=== PATIENT | female | born 1960 ===

== ENCOUNTER 2018-05-29 10:55 | Emergency (ER) | payer OTHER ==
[2018-05-29 11:17] VITALS: RESP 18
--- NOTE | 2018-05-29 12:11 | ED PDOC ---
Arrival/HPI - General Chief Complaint: Upper Extremity Problem/Injury Time Seen by Provider: 05/29/18 10:58 Historian: Patient, Other (son in low) - History of Present Illness Narrative History of Present Illness (Text): 05/29/18 12:08 57 yr old female w/ hx of chronic shoulder pain p/w b/l shoulder pain. Pt notes that her L shoulder hurts more than her R shoulder and that she has had chronic pain there for the past 10 years. She was last seen by her PMD in the [place], who prescribed her diclofenac 5yrs ago. Pt notes that her pain has improved with the medication but that it gives her stomach upset so she came to ED [facility] for any alternative options. She denies any Chest pain or Sob. She denies any orthopena, pnd, leg swelling. No hx of blood clots, venous stasis, unilateral leg swelling, hemoptysis, recent trauma / surgery. She denies any trauma and denies any blood thinners. Shoulder pain is throbbing, L and R shoulder, without radiation. No worse w/ exertion. Feels exactly like her previous chronic pain. No other complaints. No PMD Time/Duration: Other (3d) Symptom Onset: Gradual Symptom Course: Unchanged Quality: Aching Severity Level: 2 Past Medical History - Infectious Disease Hx of Infectious Diseases: None - Reproductive Menopause: Yes - Cardiac Hx Cardiac Disorders: No - Pulmonary Hx Respiratory Disorders: No - HEENT Hx HEENT Disorder: No - Endocrine/Metabolic Hx Endocrine Disorders: No - Hematological/Oncological Hx Blood Disorders: No - Musculoskeletal/Rheumatological Hx Arthritis: Yes Hx Degenerative Joint Disease: Yes - Gastrointestinal Hx Gastrointestinal Disorders: No - Genitourinary/Gynecological Hx Genitourinary Disorders: No - Psychiatric Hx Substance Use: No - Surgical History Hx Section: Yes Hx Hysterectomy: Yes - Anesthesia Hx Anesthesia: No Family/Social History Family/Social History: No Known Family HX Smoking Status: Unknown If Ever Smoked Hx Alcohol Use: No Hx Substance Use: No Allergies/Home Meds Allergies/Adverse Reactions: Allergies No Known Allergies Allergy (Verified 05/29/18 11:17) Home Medications: Home Meds Medication Instructions Recorded Confirmed Diclofenac [Diclofenac Sodium] 75 mg PO PRN PRN 05/29/18 05/29/18 Review of Systems - Review of Systems Constitutional: Normal Eyes: Normal ENT: Normal Respiratory: Normal Cardiovascular: Normal Gastrointestinal: Normal Genitourinary Female: Normal Musculoskeletal: Arthralgias (L and R shoulder pain) Skin: Normal Neurological: Normal Endocrine: Normal Hemo/Lymphatic: Normal Psychiatric: Normal Physical Exam Vital Signs Temp Pulse Resp BP Pulse Ox 05/29/18 13:46 98.8 F 64 18 113/74 96 05/29/18 11:10 99 F 85 18 127/78 98 Temperature: Afebrile Blood Pressure: Normal Pulse: Regular Respiratory Rate: Normal Appearance: Positive for: Well-Appearing, Non-Toxic, Comfortable Pain Distress: None Mental Status: Positive for: Alert and Oriented X 3 - Systems Exam Head: Present: Atraumatic, Normocephalic Pupils: Present: PERRL Extroacular Muscles: Present: EOMI Conjunctiva: Present: Normal Mouth: Present: Moist Mucous Membranes Neck: Present: Normal Range of Motion Respiratory/Chest: Present: Clear to Auscultation, Good Air Exchange. No: Respiratory Distress, Accessory Muscle Use Cardiovascular: Present: Regular Rate and Rhythm, Normal S1, S2. No: Murmurs Abdomen: No: Tenderness, Distention, Peritoneal Signs Back: Present: Normal Inspection Upper Extremity: Present: Normal Inspection, Other (R and L AC joint tenderness , reproducible. N/V intact distally. ). No: Cyanosis, Edema Lower Extremity: Present: Normal Inspection. No: Edema Neurological: Present: GCS=15, CN II-XII Intact, Speech Normal Skin: Present: Warm, Dry, Normal Color. No: Rashes Psychiatric: Present: Alert, Oriented x 3, Normal Insight, Normal Concentration Medical Decision Making ED Course and Treatment: 05/29/18 12:12 57 yr old female w/ hx of chronic r and L shoulder pain p/w L and R shoulder pain similiar to chronic shoulder pain. Given L sided pain and elderly female will send one trop, XR and give pain meds. Elderly females have been known to present atypically w/ CP, however given x3d flair of CP if truly ACS in nature: Troponin should indicate ACS. Plan for - 1 trop - additional labs - XR - pain control EKG: Ordered, reviewed, and independently interpreted the EKG. Time Interpreted: 12:13 Rate: 73 BPM Rhythm: NSR Interpretation: No STEMI. No ST-segment elevations or depressions, no T-wave inversions, normal intervals. Comparison: No previous EKG for comparison. 05/29/2018 12:45 Chest X-ray IMPRESSION: No active disease. Dictator: Brittany Junior MD 05/29/18 14:51 Pt in NAD. Pain improved. HEART SCORE: 2 age, EKG. troponin unremarkable. Pain MSK. given f/u clear for d/c home. - Lab Interpretations Lab Results: 05/29/18 12:20 05/29/18 13:58 Lab Results 05/29/18 13:58: Sodium 143, Potassium 4.1, Chloride 103, Carbon Dioxide 26, Anion Gap 17, BUN 12, Creatinine 0.6 L, Est GFR ( Amer) > 60, Est GFR ( Non-Af Amer) > 60, Random Glucose 116 H, Calcium 9.4, Total Bilirubin 0.3, AST 15, ALT 16, Alkaline Phosphatase 61, Troponin I < 0.01, Total Protein 7.6, Albumin 3.8, Globulin 3.8, Albumin/Globulin Ratio 1.0 L 05/29/18 12:20: WBC 5.8, RBC 4.29, Hgb 11.6 L, Hct 36.6, MCV 85.3, MCH 27.0, MCHC 31.7, RDW 15.7 H, Plt Count 333, MPV 9.0, Gran % 69.1 H, Lymph % (Auto) 20.5 L, Cottle % (Auto) 8.5 H, Eos % (Auto) 1.6, Baso % (Auto) 0.3, Gran # 3.98, Lymph # (Auto) 1.2, Cottle # (Auto) 0.5, Eos # (Auto) 0.1, Baso # (Auto) 0.02 I have reviewed the lab results: Yes - RAD Interpretation Radiology Orders: 05/29/18 12:02 CHEST TWO VIEWS (PA/LAT) [RAD] Stat - Medication Orders Current Medication Orders: Discontinued Medications Acetaminophen (Tylenol 325mg Tab) 650 mg PO STAT STA Stop: 05/29/18 12:05 Last Admin: 05/29/18 12:14 Dose: 650 mg MAR Pain/Vitals Document 05/29/18 12:14 [email or web address] (Rec: 05/29/18 12:14 [email or web address] [id number]) Pain Reassessment Is This A Pain ReAssessment? Yes Sleep Is patient sleeping during reassessment? No Presence of Pain Presence of Pain Yes Cyclobenzaprine HCl (Flexeril) 5 mg PO STAT STA Stop: 05/29/18 12:05 Last Admin: 05/29/18 12:14 Dose: 5 mg Disposition/Present on Arrival - Present on Arrival Any Indicators Present on Arrival: No History of DVT/PE: No History of Uncontrolled Diabetes: No Urinary Catheter: No History of Decub. Ulcer: No History Surgical Site Infection Following: None - Disposition Have Diagnosis and Disposition been Completed?: Yes Diagnosis: Shoulder pain Disposition: HOME/ ROUTINE Disposition Time: 14:39 Patient Problems: Current Active Problems Problem Status Onset Shoulder pain Acute Condition: GOOD Discharge Instructions (ExitCare): Shoulder Pain (DC) Additional Instructions: LIZBET BAUMAN, thank you for letting us take care of you today. Your provider was Sam Conway and you were treated for shoulder and arm pain. The emergency medical care you received today was directed at your acute symptoms. If you were prescribed any medication, please fill it and take as directed. It may take several days for your symptoms to resolve. Return to the Emergency Department if your symptoms worsen, do not improve, or if you have any other problems. Please contact your doctor or call one of the physicians/clinics you have been referred to that are listed on the Patient Visit Information form that is included in your discharge packet. Bring any paperwork you were given at discharge with you along with any medications you are taking to your follow up visit. Our treatment cannot replace ongoing medical care by a primary care provider outside of the emergency department. Thank you for allowing the [facility] team to be part of your care today. If you had an X-Ray or CT scan: A Radiologist will review the ED reading if any change in treatment is needed we will contact you. If you had a blood, urine, or wound culture: It will take several days for the results, if any change in treatment is needed we will contact you. If you had an STI test: It will take 48 hours for the results. Please call after 1 week if you have not heard back. Prescriptions: Acetaminophen 325 mg PO Q8H PRN 7 Days #21 tablet PRN Reason: Pain, Moderate (4-7) Cyclobenzaprine [Flexeril] 5 mg PO QAM PRN 5 Days #5 tab PRN Reason: Pain, Moderate (4-7) Referrals: PCP,NO [Primary Care Provider] - Follow up with primary Trudy Ortiz MD [Medical Doctor] - Follow up with primary Forms: [employer] (Slovenian)
[2018-05-29 13:09] LABS: BASO # 0.02 K/mm3 (0.0-2.0); BASO % 0.3 % (0.0-3.0); EOS # 0.1 (0.0-0.7); EOS % 1.6 % (1.5-5.0); GRAN # 3.98 (1.4-6.5); GRAN % 69.1 % (50.0-68.0); HEMOGLOBIN 11.6 g/dL (12.0-16.0); LYMPH # 1.2 (1.2-3.4); LYMPH % 20.5 % (22.0-35.0); MEAN CELL VOLUME 85.3 fl (80.0-105.0); MEAN CORPUSCULAR HGB CONC 31.7 g/dl (31.0-37.0); MONO # 0.5 (0.1-0.6); MONO % 8.5 % (1.0-6.0); RBC 4.29 10^6/uL (3.5-6.1); RED CELL DISTRIBUTION WIDTH 15.7 % (11.5-14.5); WHITE BLOOD COUNT 5.8 10^3/ul (4.5-11.0)
[2018-05-29 13:47] VITALS: BP 113/74
[2018-05-29 14:15] LABS: ALBUMIN 3.8 g/dL (3.0-4.8); ALT/SGPT 16 U/L (7-56); AST/SGOT 15 U/L (14-36); BLOOD UREA NITROGEN 12 mg/dL (7-21); CALCIUM 9.4 mg/dL (8.4-10.5); GFR AFRICAN-AMERICAN > 60; GFR NON-AFRICAN AMERICAN > 60
[2018-05-29 14:26] LABS: TROPONIN I < 0.01 ng/mL
[2018-05-29 14:56] VITALS: PULSE 69; TEMP 98.1; O2SAT 99
--- NOTE | 2018-05-29 17:50 | CARD ---
APPROVED REPORT Date of service: 05/29/2018 EKG Measurement Heart [id number] <Conclusion> Normal sinus rhythm Normal ECG
== END 2018-05-29 14:56 | disposition home or self-care (01) ==
LOC: ED 10:55
DX: M25.511 Pain in right shoulder (principal); M25.512 Pain in left shoulder